=== PATIENT | male | born 1980 | race Caucasian/White ===

== ENCOUNTER → 2017-06-15 | Outpatient (CLI) | payer OTHER | LOC: FCPNEURO 20:30 | PROVIDERS: ATTEND Student in an Organized Health Care Education/Training Program | DX: G47.33 Obstructive sleep apnea (adult) (pediatric) (principal) ==

== ENCOUNTER → 2017-09-30 | Outpatient (CLI) | payer OTHER | LOC: SBRMNEURO 21:00 | PROVIDERS: ATTEND Student in an Organized Health Care Education/Training Program | DX: G47.33 Obstructive sleep apnea (adult) (pediatric) (principal) ==

== ENCOUNTER → 2017-10-10 | Outpatient (CLI) | payer OTHER | LOC: FIMAGING 19:34 | PROVIDERS: ATTEND Psychiatry & Neurology Neurology | DX: M99.71 Connective tissue and disc stenosis of intervertebral foramina of cervical region (principal) ==

== ENCOUNTER → 2017-11-12 | Outpatient (CLI) | payer OTHER | LOC: FIMAGING 07:06 | PROVIDERS: ATTEND Psychiatry & Neurology Neurology | DX: M51.34 Other intervertebral disc degeneration, thoracic region (principal) ==

== ENCOUNTER → 2018-04-01 | Outpatient (CLI) | payer OTHER | LOC: FIMAGING 12:53 | PROVIDERS: ATTEND Psychiatry & Neurology Neurology | DX: R06.02 Shortness of breath (principal) ==

== ENCOUNTER 2018-07-11 10:54 | Day surgery (SDC) | payer OTHER ==
[2018-07-11] MEDS ORDERED: LR 1,000 ML IV ONE (11:08)
[2018-07-11] MEDS ORDERED: LIDOCAINE 1% 2 ML INJ ID PRN (11:08)
[2018-07-11] MEDS ORDERED: LIDOCAINE 1% 2 ML INJ ONE (11:11)
[2018-07-11] MEDS ORDERED: OXYMETAZOLINE 30 ML NASAL SPRAY ONE (11:28)
[2018-07-11] MEDS ORDERED: LIDO/EPI 1% **Not for Epidural 20 ML MDV ONE (11:28)
[2018-07-11] MEDS ORDERED: BUPIVACAINE 0.25% 30 ML SDV ONE (11:29)
[2018-07-11] MEDS ORDERED: EPINEPHrine 1 MG/ML INJ ONE (11:29)
[2018-07-11] MEDS ORDERED: BACITRACIN ZINC 0.5 OZ OINTTUBE TP ONE (11:29)
[2018-07-11] MEDS ORDERED: ACETAMINOPHEN 500 MG TAB PO PRN (11:35)
[2018-07-11] MEDS ORDERED: ALBUTEROL 3 ML DEYVIAL IH PRN (11:35)
[2018-07-11] MEDS ORDERED: HYDROmorphONE/DILAUDID 2 MG/ML INJ IVP PRN (11:35)
[2018-07-11] MEDS ORDERED: NALOXONE HCL 0.4 MG/ML INJ IVP PRN (11:35)
[2018-07-11] MEDS ORDERED: oxyCODONE IR 5 MG TAB PO PRN (11:35)
[2018-07-11] MEDS ORDERED: MIDAZOLAM 2 MG/2 ML VIAL IVP ONE (11:35)
[2018-07-11] MEDS ORDERED: LR 500 ML IV PRN (11:35)
[2018-07-11] MEDS ORDERED: ONDANSETRON 4 MG/2 ML VIAL IVP PRN (11:35)
--- NOTE | 2018-07-11 11:37 | PDANEPAE ---
ANE History of Present Illness Septoplasty ANE Past Medical History - Cardiovascular History Hx Hypertension: No Hx Arrhythmias: No Hx Chest Pain: No Hx Coronary Artery / Peripheral Vascular Disease: No Hx CHF / Valvular Disease: No Hx Palpitations: No - Pulmonary History Hx COPD: No Hx Asthma/Reactive Airway Disease: No Hx Recent Upper Respiratory Infection: No Hx Oxygen in Use at Home: No Hx Sleep Apnea: Yes Sleep Apnea Screening Result - Last Documented: Positive - Neurologic History Hx Cerebrovascular Accident: No Hx Seizures: No Hx Dementia: No - Endocrine History Hx Diabetes: No - Renal History Hx Renal Disorders: Yes Renal History Comment: RENAL CYSTS/ PROCEDURES - Liver History Hx Hepatic Disorders: No - Neurological & Psychiatric Hx Hx Neurological and Psychiatric Disorders: No - Cancer History Hx Cancer: No - GI History Hx Gastrointestinal Disorders: No - Other Health History Other Health History: NEG - Chronic Pain History Chronic Pain: Yes (LOW BACK & NECK) - Surgical History Prior Surgeries: LUMBAR FUSION. R SI JOINT FUSION. EPIDURAL INJS. RENAL CYST ANE Review of Systems Review of Systems: - Exercise capacity METS (RN): 5 METS ANE Patient History - Allergies Allergies/Adverse Reactions: No Known Allergies Allergy (Unverified 07/10/18 12:52) - Home Medications Home Medications: NK [No Known Home Meds] 07/10/18 [Last Taken Unknown] - NPO status NPO Since - Liquids (Date): 07/11/18 NPO Since - Liquids (Time): 00:00 NPO Since - Solids (Date): 07/10/18 NPO Since - Solids (Time): 22:30 - Smoking Hx Smoking Status: Former smoker - Family Anes Hx Family Hx Anesthesia Complications: NEG ANE Labs/Vital Signs - Vital Signs Blood Pressure: 122/70 Heart Rate: 88 Respiratory Rate: 17 O2 Sat (%): 98 Height: 180.34 cm Weight: 62.596 kg ANE Physical Exam - Airway Neck exam: FROM Mallampati Score: Class 2 Mouth exam: normal dental/mouth exam - Pulmonary Pulmonary: clear to auscultation - Cardiovascular Cardiovascular: regular rate and rhythym - ASA Status ASA Status: I ANE Anesthesia Plan Anesthesia Plan: general endotracheal anesthesia
--- NOTE | 2018-07-11 11:37 | PDHPUP ---
History & Physical Update H&P update statement: This history and physical update is based on an assessment of the patient which was completed after admission or registration (within 24 hours), but prior to the surgery/procedure. H&P update: H&P reviewed & patient examined, no change in patient's condition since H&P completed
[2018-07-11] MEDS ORDERED: fentaNYL 100 MCG/2 ML INJ ONE ×7 (11:51→17:02)
[2018-07-11] MEDS ORDERED: PROPOFOL 200 MG/20 ML VIAL ONE (11:51)
[2018-07-11] MEDS ORDERED: DEXAMETHASONE 4 MG/ML VIAL ONE ×3 (11:59)
[2018-07-11] MEDS ORDERED: ONDANSETRON 4 MG/2 ML VIAL ONE ×2 (11:59→15:16)
[2018-07-11] MEDS ORDERED: ROCURONIUM 50 MG/5 ML VIAL ONE ×2 (13:06)
[2018-07-11] MEDS ORDERED: SUGAMMADEX SODIUM 200 MG/2 ML VIAL IVP ONE (13:22)
--- NOTE | 2018-07-11 13:44 | POSTANESTH ---
Post Anesthetic Evaluation Cardiovascular Status: Normal, Stable Respiratory Status: Normal, Stable Level of Consciousness/Mental Status: Can Participate in Eval, Alert and Oriented Pain Control: Adequate, Prn Tx Ordered Nausea/Vomiting Control: Adequate, Prn Tx Ordered Complications Possibly Related to Anesthesia: None Noted
--- NOTE | 2018-07-11 13:47 | POSTOPPROG ---
Post Op Note Date of Operation: 07/11/18 Surgeon: Melvin Pedro Anesthesia: GET(General Endotracheal) Pre-op Diagnosis: Lingual tonsil hypertrophy, septal deviaiton, inf turb hypertrophy Post-op Diagnosis: Lingual tonsil hypertrophy, septal deviaiton, inf turb hypertrophy Indication: Lingual tonsil hypertrophy, septal deviaiton, inf turb hypertrophy Procedure: Lingual tonsillectomy, endo septoplasty, inf turb SMR Findings: Lingual tonsil hypertrophy, septal deviaiton, inf turb hypertrophy Inf/Abcess present in the surg proc area at time of surgery?: No Depth: Deep Incisional (Fascial) EBL: Minimal Complications: none Specimen(s): none
[2018-07-11] MEDS ORDERED: HYDROCOD/APAP 7.5/325 IN 15ML UDCUP PO PRN (13:48)
[2018-07-11] MEDS ORDERED: OXYMETAZOLINE 30 ML NASAL SPRAY EACHNARE PRN (13:48)
[2018-07-11] MEDS: fentaNYL 100 MCG/2 ML INJ IVP PRN ×9 (13:56→18:17)
[2018-07-11] MEDS ORDERED: PROMETHAZINE HCL 25 MG/ML INJ ONE (17:03)
[2018-07-11] MEDS: PROMETHAZINE HCL 25 MG/ML INJ IVP PRN ×3 (17:06→18:16)
[2018-07-11 18:04] VITALS: BP 128/81
--- NOTE | 2018-08-18 05:57 | GOP ---
[f rep st] OPERATIVE REPORT DATE OF OPERATION: 07/11/2018 SURGEON: Melvin Pedro MD WEIGH BOX TENDER: None. ANESTHESIA: General. PREOPERATIVE DIAGNOSIS: Lingual tonsil hypertrophy, obstructive septal deviation, obstructive bilate ral inferior turbinate hypertrophy. POSTOPERATIVE DIAGNOSIS: Lingual tonsil hypertrophy, obstructive septal deviation, obstructive bilat eral inferior turbinate hypertrophy. PROCEDURE PERFORMED: Endoscopically assisted septoplasty, bilateral inferior turbinate submucosal re section and outfracture, lingual tonsillectomy. FINDINGS: Lingual tonsil hypertrophy with obstructive septal deviation and bilateral inferior turbin ate hypertrophy ESTIMATED BLOOD LOSS: Minimal. INDICATIONS: Lingual tonsil hypertrophy with obstructive septal deviation and inferior turbinate hyp ertrophy. DESCRIPTION OF PROCEDURE: Patient was brought to the operating room by Anesthesiology and placed on the operating table. Once the appropriate level of anesthesia was achieved, bilateral nasal cavities were injected at the columella, septum, maxillary lines, and inferior turbinates with 1% lidocaine w ith 1:100,000 epinephrine. Afrin-soaked pledgets were then placed in bilateral nasal cavities. The patient was then prepped and draped in usual fashion. The remainder of the nasal procedure was perfo rmed under 0 degree endoscopic visualization. Once the pledgets were given a chance to decongest the nasal cavities, they were removed. A needle-t ip Bovie electrocautery was used to create a left hemitransfixion incision. The mucosal septal flap was raised in a subperichondrial and subperiosteal plane using a Akbar elevator and suction Welch. Once this was completed appropriately, a vertical incision was created at the bony cartilaginous junc tion with the Sullivan elevator. The contralateral mucosa was elevated off the bony septum using the s uction Welch. A D-knife was then used to incise the deviated portions of quadrangular cartilage. Ca re was taken to leave at least 1 cm of dorsal and caudal septal strut. The incised portion of quadra ngular cartilage was then elevated off the contralateral mucosa with the suction Welch. This was the n delivered away with a Chelsey. A straight Oropeza scissors was then used to create a cut at the sup erior aspect of the bony septum. A Chelsey was then used remove the remaining portions of deviated bony septum. Deviated portions of the septum along the maxillary crest were also removed with the Coni palma. Once this was completed, the flap was laid back in place and under endoscopic visualizatio n, the septum appeared midline and straight. The surgical bed was inspected for bleeding and none wa s found. The left hemitransfixion incision was then closed with two 4-0 interrupted chromic sutures. Bilateral inferior turbinates were then reduced in a submucosal fashion using a 2 mm turbinate microd ebrider. A stab incision was created at the right inferior turbinate and under endoscopic visualizat ion, the microdebrider was run in a submucosal fashion through to the tail of the turbinate. This wa s repeated at the left inferior turbinate. There was good soft tissue reduction of both inferior tur binates with this. A Welch elevator was then used to infracture the right inferior turbinate before outfracturing it and lateralizing it. This was repeated with the left inferior turbinate. There was good lateralization with both inferior turbinates with this procedure. Afrin-soaked pledgets were t hen placed in bilateral nasal cavities for hemostasis. The patient was then re-prepped and draped for the lingual tonsil portion of the procedure. A should er roll was placed and the operating table was turned 90 degrees. A 2-0 silk suture was placed throu gh the mid tip of the tongue. This was used to retract the tongue anteriorly. A small blade was charity get on the McIvor mouth gag and then placed atraumatically in the oral cavity and placed in a posteri or angled position. This was done while retracting on the tongue. The mouth gag was then suspended on the Oropeza stand. A 70 degree rigid video endoscope was then used to visualize the base of the tong ue. There was good visualization of the lingual tonsil and epiglottis. Coblation technique was then used to ablate and remove the lingual tonsil tissue. Efforts were concentrated at the midline and v allecula and running anterosuperiorly to the filiform taste buds. A significant amount of lymphoid m aterial was removed. There was mild bleeding with this and hemostasis was achieved using Coblation c autery alone. The tongue was repositioned along with the ET tube for better visualization of the ton dylan. Once the lingual tonsillectomy was complete, the surgical bed was inspected for bleeding. None was found. The tongue suture was removed. The mouth gag was removed. The 0 degree video endoscope was then used to visualize bilateral nasal cavities for bleeding after the pledgets were removed. N o significant bleeding was found. Bacitracin-coated Saez splints were placed in bilateral nasal cav ities and sutured in place with a single 3-0 Prolene suture. The patient tolerated these procedures well and was extubated in the operating room prior to being transferred in good condition to the post anesthesia care unit. COMPLICATIONS: None. /[id number]/MODL
== END 2018-07-11 18:30 | disposition home or self-care (01) ==
LOC: FSGY 10:54
PROVIDERS: ATTEND Otolaryngology
PROC: 0C5PXZZ Destruction of Tonsils, External Approach (ICD-10-PCS; principal; 2018-07-11 12:30)
PROC: 09SM4ZZ Reposition Nasal Septum, Percutaneous Endoscopic Approach (ICD-10-PCS; principal; 2018-07-11 12:30)
PROC: 095L8ZZ Destruction of Nasal Turbinate, Via Natural or Artificial Opening Endoscopic (ICD-10-PCS; principal; 2018-07-11 12:30)
DX: J34.2 Deviated nasal septum (principal); J34.3 Hypertrophy of nasal turbinates; J35.1 Hypertrophy of tonsils; J34.89 Other specified disorders of nose and nasal sinuses; G47.30 Sleep apnea, unspecified; N28.1 Cyst of kidney, acquired; Z98.1 Arthrodesis status
CPT/HCPCS: J0171; J1100; J2250; J2405; J2550; J2704; J3010

== ENCOUNTER 2018-09-22 15:57 | Emergency (ER) | payer OTHER ==
[2018-09-22] MEDS ORDERED: NS 1,000 ML IV ONE (16:14)
[2018-09-22 16:26] LABS: PLATELET COUNT 190 10^3/uL (150-400)
[2018-09-22] MEDS ORDERED: LORazepam 2 MG/ML INJ IVP ONE (16:49)
--- NOTE | 2018-09-22 16:50 | EDPHY ---
H & P Stated Complaint: epigastric tightness for years/sat syncope assoc with n/v Time Seen by Provider: 09/22/18 16:14 HPI/ROS: CHIEF COMPLAINT: Epigastric discomfort which is chronic, episode of syncope, vomiting and diarrhea HISTORY OF PRESENT ILLNESS: The patient has a somewhat complicated past medical history with a history of subjective diaphragmatic dysfunction. The patient has been struggling with symptoms of intermittent epigastric pain and is under the impression that he has some diaphragmatic dysfunction which has not been verified fluoroscopically. The patient uses baclofen for this condition occasionally. The patient experienced an episode of syncope on Saturday. He denies any melena or hematemesis. The patient is currently under the care of a specialist in [place]. The patient recently relocated to the [facility] and has not yet established primary care. He came to the emergency department today secondary to symptoms of dyspnea. The patient does report pleuritic chest pain localized to the epigastrium with inspiration. He denies any fever, cough or congestion. He denies any lower abdominal pain currently. REVIEW OF SYSTEMS: A comprehensive 10 point review of systems is otherwise negative aside from elements mentioned in the history of present illness. Source: Patient Exam Limitations: No limitations - Personal History Current Tetanus Diphtheria and Acellular Pertussis (TDAP): Yes - Medical/Surgical History Hx Asthma: No Hx Chronic Respiratory Disease: No Hx Diabetes: No Hx Cardiac Disease: No Hx Renal Disease: No Hx Cirrhosis: No Hx Alcoholism: No Hx HIV/AIDS: No Hx Splenectomy or Spleen Trauma: No Other PMH: gi issues anxiety - Social History Smoking Status: Former smoker - Physical Exam Exam: General Appearance: Thin male, anxious Eyes: Pupils equal and round no pallor or injection ENT, Mouth: Mucous membranes moist Respiratory: There are no retractions, lungs are clear to auscultation Cardiovascular: Regular rate and rhythm Gastrointestinal: Epigastric discomfort in tenderness appreciated, no peritoneal signs, no right upper quadrant tenderness Neurological: A&O, normal motor function, normal sensory exam, normal cranial nerves Skin: Warm and dry, no rashes Musculoskeletal: Neck is supple nontender Extremities: symmetrical, full range of motion Psychiatric: Patient is oriented X 3, there is no agitation Constitutional: Initial Vital Signs Temperature (C) 36.6 C 09/22/18 16:04 Heart Rate 82 09/22/18 16:04 Respiratory Rate 18 09/22/18 16:04 Blood Pressure 115/81 H 09/22/18 16:04 O2 Sat (%) 100 09/22/18 16:04 O2 Delivery Mode Room Air Allergies/Adverse Reactions: No Known Allergies Allergy (Unverified 07/10/18 12:52) Home Medications: Medication Instructions Recorded Baclofen 09/22/18 Ondansetron Odt [Zofran Odt] 4 mg PO Q4PRN PRN #20 tab 09/22/18 Medical Decision Making - Diagnostics EKG Interpretation: EKG: Complete interpretation has been separately recorded in the [facility] archive. Summary impression: Sinus rhythm, rate 79, no ischemic changes noted Imaging Results: Imaging Impressions Chest/Thorax CTA 09/22/18 18:15 Impression: 1. No evidence of pulmonary embolus using CT protocol. 2. Normal CT chest. 3. Incidental cyst inferior margin of the spleen. Findings discussed with Hammad June M.D. at 19:06 hour, 09/22/2018. ED Course/Re-evaluation: The patient presents the ED with multiple complaints including presyncope, acute exacerbation of chronic epigastric discomfort and dyspnea. The patient did endorse some mild symptoms of pleurisy. His D-dimer was elevated at [address] pulmonary angiogram is normal. The patient was noted to have epigastric tenderness however CT scan through that area is also unremarkable. The patient has been having vomiting diarrhea I suspect is having chronic symptoms exacerbated by gastroenteritis. Patient did receive IV fluids in the emergency department. Review of his laboratory studies are unremarkable. I re-evaluated the patient at 7:00 p.m. And find him in no acute distress. He is hemodynamically stable. I do feel the patient is safe to be discharged home. Patient will be advised to increase his fluid intake. He is given a prescription for Zofran. Patient is also given the contact number of our on-call primary care provider if he wishes to establish local care for evaluation of his chronic medical conditions. Differential Diagnosis: Differential diagnosis considered includes gastroenteritis, vasovagal episode, dehydration, metabolic derangement, pulmonary embolism, peptic ulcer disease - Data Points Laboratory Results: Laboratory Results 09/22/18 16:20 09/22/18 16:20 09/22/18 09/22/18 09/22/18 16:22 16:20 16:20 WBC RBC Hgb Hct MCV MCH MCHC RDW Plt Count MPV Neut % (Auto) Lymph % (Auto) [place] % (Auto) Eos % (Auto) Baso % (Auto) Nucleat RBC Rel Count Absolute Neuts (auto) Absolute Lymphs (auto) Absolute Monos (auto) Absolute Eos (auto) Absolute Basos (auto) Absolute Nucleated RBC Immature Gran % Immature Gran # D-Dimer 3.31 ug/mLFEU H ug/mLFEU (0.00-0.50) Sodium Potassium Chloride Carbon Dioxide Anion Gap BUN Creatinine Estimated GFR Glucose Calcium Total Bilirubin 1.4 mg/dL mg/dL (0.1-1.4) Conjugated Bilirubin 0.1 mg/dL mg/dL (0.0-0.5) Unconjugated Bilirubin 1.3 mg/dL H mg/dL (0.0-1.1) AST 40 IU/L IU/L (17-59) ALT 54 IU/L IU/L (21-72) Alkaline Phosphatase 38 IU/L IU/L (38-126) POC Troponin I 0.01 ng/mL ng/mL (0.00-0.08) Total Protein 7.3 g/dL g/dL (6.3-8.2) Albumin 4.6 g/dL g/dL (3.5-5.0) Lipase 68 IU/L IU/L (23-300) 09/22/18 09/22/18 16:20 16:20 WBC 12.35 10^3/uL H 10^3/uL (3.80-9.50) RBC 4.73 10^6/uL 10^6/uL (4.40-6.38) Hgb 14.5 g/dL g/dL (13.7-17.5) Hct 42.3 % % (40.0-51.0) MCV 89.4 fL fL (81.5-99.8) MCH 30.7 pg pg (27.9-34.1) MCHC 34.3 g/dL g/dL (32.4-36.7) RDW 12.4 % % (11.5-15.2) Plt Count 190 10^3/uL 10^3/uL (150-400) MPV 8.9 fL fL (8.7-11.7) Neut % (Auto) 79.5 % H % (39.3-74.2) Lymph % (Auto) 11.8 % L % (15.0-45.0) [place] % (Auto) 6.8 % % (4.5-13.0) Eos % (Auto) 1.1 % % (0.6-7.6) Baso % (Auto) 0.3 % % (0.3-1.7) Nucleat RBC Rel Count 0.0 % % (0.0-0.2) Absolute Neuts (auto) 9.82 10^3/uL H 10^3/uL (1.70-6.50) Absolute Lymphs (auto) 1.46 10^3/uL 10^3/uL (1.00-3.00) Absolute Monos (auto) 0.84 10^3/uL H 10^3/uL (0.30-0.80) Absolute Eos (auto) 0.13 10^3/uL 10^3/uL (0.03-0.40) Absolute Basos (auto) 0.04 10^3/uL 10^3/uL (0.02-0.10) Absolute Nucleated RBC 0.00 10^3/uL 10^3/uL (0-0.01) Immature Gran % 0.5 % % (0.0-1.1) Immature Gran # 0.06 10^3/uL 10^3/uL (0.00-0.10) D-Dimer Sodium 137 mEq/L mEq/L (135-145) Potassium 4.2 mEq/L mEq/L (3.5-5.2) Chloride 103 mEq/L mEq/L (97-110) Carbon Dioxide 25 mEq/l mEq/l (22-31) Anion Gap 9 mEq/L mEq/L (6-14) BUN 23 mg/dL mg/dL (7-23) Creatinine 1.0 mg/dL mg/dL (0.7-1.3) Estimated GFR > 60 Glucose 92 mg/dL mg/dL (70-100) Calcium 9.7 mg/dL mg/dL (8.5-10.4) Total Bilirubin Conjugated Bilirubin Unconjugated Bilirubin AST ALT Alkaline Phosphatase POC Troponin I Total Protein Albumin Lipase Medications Given: Discontinued Medications Sodium Chloride (Ns) 1,000 mls @ 0 mls/hr IV EDNOW ONE; Wide Open PRN Reason: Protocol Stop: 09/22/18 16:15 Last Admin: 09/22/18 16:20 Dose: 1,000 mls Lorazepam (Ativan Injection) 1 mg IVP EDNOW ONE Stop: 09/22/18 16:50 Last Admin: 09/22/18 17:00 Dose: 1 mg Point of Care Test Results: Chemistry 09/22/18 16:22 POC Troponin I 0.01 ng/mL ng/mL (0.00-0.08) Departure - Departure Disposition: Home, Routine, Self-Care Clinical Impression: Vasovagal episode, Gastroenteritis Abdominal pain Qualifiers: Abdominal location: epigastric Qualified Code(s): R10.13 - Epigastric pain Condition: Good Instructions: Acute Abdominal Pain (ED) Additional Instructions: 1. The workup in the emergency department today demonstrates no obvious abnormalities. 2. I do believe your having symptoms related to your chronic condition which has been exacerbated by acute gastroenteritis. 3. I do recommend beginning Zofran as needed for nausea and vomiting. 4. Please return to the ED for markedly worsening symptoms or other concerns. 5. You have been given the contact number of our on-call primary care provider if you wish to establish local care. Referrals: JEFFY ORTEGA [Other] - As per Instructions Jeffrey Teresa MD [Medical Doctor] - As per Instructions Prescriptions: Ondansetron Odt [Zofran Odt] 4 mg PO Q4PRN PRN #20 tab PRN Reason: For Nausea
--- NOTE | 2018-09-22 16:51 | CPEKG ---
Test Reason : OPEN Blood Pressure : / mmHG Vent. Rate : 079 BPM Atrial Rate : 079 BPM P-R Int : 189 ms QRS Dur : 093 ms QT Int : 357 ms P-R-T Axes : 069 091 054 degrees QTc Int : 410 ms Sinus rhythm Borderline right axis deviation Confirmed by Hammad June ([id number]) on 09/22/2018 4:51:21 PM Referred By: PHYSICIAN ED Confirmed By:Hammad June
[2018-09-22] MEDS ORDERED: IOPAMIDOL (ISOVUE 370) 100 ML BTL IV ONE (18:24)
[2018-09-22 19:31] VITALS: BP 109/70
== END 2018-09-22 19:53 | disposition home or self-care (01) ==
DX: R55 Syncope and collapse (principal); K52.9 Noninfective gastroenteritis and colitis, unspecified; R10.13 Epigastric pain; E86.9 Volume depletion, unspecified
CPT/HCPCS: 84484-ER; 96374; J2060; Q9967

== ENCOUNTER → 2018-11-23 | Outpatient (CLI) | payer OTHER | LOC: FCPNEURO 21:30 ==